=== PATIENT | female | born 1980 | race African-American/Black ===

== ENCOUNTER 2017-01-14 21:27 | Emergency (ER) | payer OTHER, MEDICAID ==
[~2017-01-14] VITALS: Ht 175.3 cm; Wt 100.0 kg
[~2017-01-14 21:27] MED LIST: BACT800T5 PO; HIBI4LIQ TOP
[2017-01-14 21:34] VITALS: BP 134/82; PULSE 86; RESP 16; TEMP 97.6; O2SAT 95
[2017-01-14] MEDS ORDERED: LEVO25TA4 PO (21:38)
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
[2017-01-14] MEDS ORDERED: TRAM50TA PO (23:07)
[2017-01-14 23:22] VITALS: BP 121/77; PULSE 85; RESP 18; O2SAT 96
--- NOTE | 2017-01-15 14:14 | EKG ---
Date Performed: 01/14/2017 Time Performed: 21:39:38 PTAGE: 36 years EKG: Sinus rhythm NORMAL ECG NO PREVIOUS TRACING DOCTOR: Milady Arroyo Interpretating Date/Time 01/15/2017 14:08:10
== END 2017-01-14 23:28 | disposition home or self-care (01) ==
LOC: NEPD 21:27
DX: S20.219A Contusion of unspecified front wall of thorax, initial encounter (principal); S16.1XXA Strain of muscle, fascia and tendon at neck level, initial encounter; V49.49XA Driver injured in collision with other motor vehicles in traffic accident, initial encounter; Y92.410 Unspecified street and highway as the place of occurrence of the external cause
CPT/HCPCS: 71010; 72040; 93005

== ENCOUNTER 2017-04-13 17:16 | Emergency (ER) | payer MEDICAID ==
[~2017-04-13] VITALS: Ht 175.3 cm; Wt 108.0 kg
[~2017-04-13 17:16] MED LIST changes: -BACT800T5 PO; -HIBI4LIQ TOP; +LEVO25TA4 PO; +TRAM50TA PO
[2017-04-13 17:18] VITALS: BP 158/92; PULSE 80; RESP 16; TEMP 98.2; O2SAT 99
--- NOTE | 2017-04-13 17:51 | PD ---
HPI Chief Complaint: Injury Time Seen by Provider: 17:42 Travel History International Travel<30 days: No Contact w/Intl Traveler<30days: No Traveled to known affect area: No History of Present Illness HPI This patient complains of injury to the left wrist. This morning she slipped and fell on the shower and landed on it. Duration one day. Symptoms are moderately severe. They are Exacerbated with movement. No alleviating factors. PFSH Past Medical History Thyroid Disease: Yes ?: Not : 7 Para: 7 Social History Alcohol Use: No Tobacco Use: Yes (PRIOR TO PREG) Substance Use: No Allergies-Medications (Allergen,Severity, Reaction): Coded Allergies: iodine (Unverified Allergy, Intermediate, swelling, 01/14/17) potassium iodide (Unverified Allergy, Intermediate, swelling, 01/14/17) povidone-iodine (Unverified Allergy, Intermediate, swelling, 01/14/17) shellfish derived (Unverified Allergy, Intermediate, Swelling, 01/14/17) sodium iodide (Unverified Allergy, Intermediate, swelling, 01/14/17) sodium iodide (Unverified Allergy, Intermediate, swelling, 01/14/17) Reported Meds & Prescriptions Reported Meds & Active Scripts Active Tramadol (Tramadol HCl) 50 Mg Tab 50 Mg PO Q6H PRN Reported Levothyroxine (Levothyroxine Sodium) 25 Mcg Tab 25 Mcg PO DAILY Review of Systems General / Constitutional: No: Fever Eyes: No: Visual changes HENT: No: Headaches Cardiovascular: No: Chest Pain or Discomfort Respiratory: No: Shortness of Breath Gastrointestinal: No: Abdominal Pain Genitourinary: No: Dysuria Musculoskeletal: Positive: Pain Skin: No Rash Neurologic: No: Weakness Psychiatric: No: Depression Endocrine: No: Polydipsia Hematologic/Lymphatic: No: Easy Bruising Physical Exam Narrative GENERAL: Well-nourished, well-developed patient in no apparent distress. SKIN: Focused skin assessment reveals no rash and nodules. Skin is Warm and dry. HEAD: Atraumatic. Normocephalic. EYES: Pupils equal and round. No scleral icterus. No injection or drainage. ENT: No nasal bleeding or discharge. Mucous membranes pink and moist. NECK: Trachea midline. No JVD. CARDIOVASCULAR: Regular rate and rhythm. No murmur appreciated. RESPIRATORY: No accessory muscle use. Clear to auscultation. Breath sounds equal bilaterally. GASTROINTESTINAL: Abdomen soft, non-tender, nondistended. Hepatic and splenic margins not palpable. MUSCULOSKELETAL: Some swelling and tenderness of the left wrist. It's neurovascularly intact. No open wound. No clubbing. No cyanosis. No edema. NEUROLOGICAL: Awake and alert. No obvious cranial nerve deficits. Motor grossly within normal limits. Normal speech. PSYCHIATRIC: Appropriate mood and affect; insight and judgment normal. Data Data Last Documented VS Vital Signs Date Time Temp Pulse Resp B/P (MAP) Pulse Ox O2 Delivery O2 Flow Rate FiO2 04/13/17 17:33 95 04/13/17 17:18 98.2 80 16 158/92 (114) Orders Orders Wrist, Complete ([id number]) (04/13/17 ) Splint Or Brace Apply/Monitor (04/13/17 18:33) [facility] Medical Decision Making Medical Screen Exam Complete: Yes Emergency Medical Condition: Yes Medical Record Reviewed: Yes Differential Diagnosis Fracture, dislocation, contusion Narrative Course I have reviewed the patient's electronic medical record. I reviewed her left wrist x-rays which are negative for fracture I placed her in a Velcro wrist splint. She'll ice and elevate and use Advil. Recommend primary care or orthopedic follow-up if she is still symptomatic on Saturday. She has no snuffbox tenderness Diagnosis Primary Impression: Soft tissue injury of left wrist Qualified Codes: S69.92XA - Unspecified injury of left wrist, hand and finger( s), initial encounter Additional Instructions: Ice and elevate and rest left wrist Wear splint Use Advil as needed The patient was advised to follow up with their physician and return if they worsen. Med/Other Pt SpecificInfo: Other Disposition: 01 DISCHARGE HOME Condition: Stable Constantin Goldman MD Apr 13, 2017 17:51
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
== END 2017-04-13 19:28 | disposition home or self-care (01) ==
LOC: NEPC 17:16
DX: S69.92XA Unspecified injury of left wrist, hand and finger(s), initial encounter (principal); W18.2XXA Fall in (into) shower or empty bathtub, initial encounter; Y93.E1 Activity, personal bathing and showering
CPT/HCPCS: 73110; 99285; L3908